=== PATIENT | male | born 1995 | race African-American/Black ===

== ENCOUNTER 2019-12-23 20:00 | Outpatient (CLI) | payer OTHER ==
--- NOTE | 2020-01-12 10:34 | SLEEPMSLT ---
NOCTURNAL POLYSOMNOGRAPHY DATE: 12/23/2019 REFERRING PHYSICIAN: Edison Gillespie MD INTERPRETATION: Overnight polysomnography was performed for evaluation of excessive daytime sleepiness. A total of 7 hours and 38 minutes of data was reviewed with total sleep time and sleep efficiency mildly reduced. Mild snoring was observed. Oxygen saturation remained 92% and above throughout the study. EKG revealed normal sinus rhythm. EEG remained normal throughout. There were no significant respiratory events or respiratory effort-related arousals during this study. CONCLUSIONS: Primary snoring, no polysomnographic evidence of sleep apnea. MULTIPLE SLEEP LATENCY TEST DATE: 12/24/2019 INTERPRETATION: After overnight polysomnography a multiple sleep latency test was performed. The patient was given four nap opportunities, and the patient achieved sleep in all four naps and REM sleep in nap three. Mean sleep latency during four naps was 7.2 minutes. Sleep latencies were 3, 4.5, 5, and 3.5 minutes in four individual naps respectively. CONCLUSION: This is an abnormal multiple sleep latency test consistent with hypersomnia such as seen in idiopathic hypersomnia. Clinical correlation is recommended. [facility]
== END 2019-12-24 15:00 ==
LOC: M SLEEP 20:00
PROVIDERS: ATTEND Psychiatry & Neurology Neurology
DX: G47.419 Narcolepsy without cataplexy (principal); G47.53 Recurrent isolated sleep paralysis